=== PATIENT | male | born 1995 | race Caucasian/White ===

== ENCOUNTER 2024-07-02 09:03 | Emergency (ER) | payer BC, SELFPAY ==
--- OUTSIDE RECORDS SUMMARY | 2024-07-02 09:06 | XMS REPORT | Continuity of Care Document ---
Author Name Unknown Address [address] [place] [address] [address] [facility] Address [address] [facility] 1 [address] [place] [address] Care Team Providers Care Air Analysis Technician Name Role Phone LOIS WALKER Attending Clinician Unavailable JOLENE Attending Clinician Unavailable Yael Attending Clinician Unavailable SLOAN Attending Clinician Unavailable HANG SAGE Attending Clinician Unavailable PATI LITTLE Attending Clinician Unavailable WILLIE DIXON Attending Clinician Unavailable LOURDES FIGUEROA Attending Clinician Unavailable CHACHA SÁNCHEZ Attending Clinician Unavailable MASHA CASTILLO Attending Clinician Unalandry bob AMBREEN_JOHNATHANA Admitting Clinician Unavailable Shield Admitting Clinician Unavailable AURORA_Marin Admitting Clinician Unavailable Payers Payer Name Policy Type Policy Number Effective Date Expirati on Date Source [place] [id number] [facility] [id number] Encounters Start Date/Time End Date/Time Encounter Type Admission Type Attending Clinicians Care Facility Care Department Encounter ID Source 2023-01-21 15:00:00 2023-01-21 16:40:00 Emergency ER LOIS WALKER [facility] [id number] [facility] 2021-11-15 05:52:00 2021-11-15 05:52:00 Outpatient AMBREEN_FAR HANA [facility] [id number] [facility] 2021-06-12 10:24:00 2021-06-12 10:24:00 Outpatient [facility] [id number] [facility] 2021-06-12 10:24:00 2021-06-12 10:24:00 Outpatient [facility] [id number] [facility] 2021-06-11 10:06:00 2021-06-11 10:06:00 Outpatient Shield [facility]G [facility] [id number] [facility] 2021-06-07 10:22:00 2021-06-07 10:22:00 Outpatient CANNON_J MMG [facility] [id number] [facility] 2020-09-16 07:06:00 2020-09-16 08:58:00 Emergency ER HANG SAGE [facility] [id number] [facility] 2019-07-10 00:41:00 2019-07-10 02:54:00 Emergency ER SIDNEY PATI [facility] [id number] [facility] 2018-10-06 18:08:00 2018-10-06 21:40:00 Emergency ER WILLIE DIXON [facility] [id number] [facility] 2018-04-08 10:50:00 2018-04-08 11:51:00 Emergency ER LOURDES FIGUEROA [facility] [id number] [facility] 2014-01-22 14:34:00 2014-01-22 16:01:00 Emergency ER GONZALO CHACHA [facility] [id number] [facility] 2013-05-02 13:14:00 2013-05-02 15:15:00 Emergency ER MASHA CASTILLO [facility] [id number] [facility]
[2024-07-02] MEDS ORDERED: LIDOCAINE 2% W/EPI 1:200,000 MPF 20 ML VIAL IM ONE (09:30)
[2024-07-02] MEDS ORDERED: ONDANSETRON 4 MG (ODT) TAB ONE (09:30)
--- NOTE | 2024-07-02 10:07 | RAD REPORT ---
EXAM: CT brain without contrast HISTORY: Headache status post head trauma COMPARISON: None TECHNIQUE: Multiple contiguous axial images were obtained and a CT of the brain without contrast.. Sagittal and coronal reconstruction performed. Automated exposure control, adjustment of the mA and/or kV according to patient size, and/or iterative reconstruction. Unless otherwise specified, incidental f indings do not require dedicated imaging follow-up FINDINGS: Left scalp hematoma. An intracranial bleed is not seen Ventricles are normal caliber No extra-axial fluid collection noted No significant hypodensity within the brain No fluid within the visualized sinuses or mastoids noted. IMPRESSION: No acute intracranial abnormality noted. If the patient continues to have symptoms to suggest an acute intracranial abnormality then MRI of th e brain would be recommended.
--- NOTE | 2024-07-02 11:43 | ER ---
Nurse's Notes [facility] Name: Julius Manzanares Jr Age: 28 yrs Sex: Male : 1995 Arrival Date: 07/02/2024 Time: 09:03 Bed 8 Private MD: Diagnosis: Six centimeter scalp laceration, stapled wound closure by physician Presentation: 07/02 09:14 Chief complaint: Patient states: 2x8 board fell off scaffold and hit in head. jl7 Coronavirus screen: At this time, the client does not indicate any symptoms associated with coronavirus-19. Ebola Screen: No symptoms or risks identified at this time. Complicating Factors: There are no complicating factors for this patient. Initial Sepsis Screen: Does the patient meet any 2 criteria? No. Patient's initial sepsis screen is negative. Does the patient have a suspected source of infection? No. Patient's initial sepsis screen is negative. Risk Assessment: Do you want to hurt yourself or someone else? Patient reports no desire to harm self or others. Onset of symptoms was July 02, 2024. 09:14 Method Of Arrival: Ambulatory [facility] 09:14 Acuity: NILAY 4 jl7 Triage Assessment: 09:15 General: Appears in no apparent distress. uncomfortable, Behavior is calm, cooperative, jl7 appropriate for age. Pain: Complains of pain in head Pain currently is 8 out of 10 on a pain scale. Injury Description: Laceration sustained to scalp. Historical: - Allergies: 09:15 No Known Allergies; jl7 - Home Meds: 09:15 None [Active]; jl7 - PMHx: 09:15 None; jl7 - PSHx: 09:15 None; jl7 - Immunization history:: Adult Immunizations unknown. - Infectious Disease History:: Denies. - Social history:: Smoking status: Reported history of juuling and/or vaping. Screenin:14 [facility] ED Fall Risk Assessment (Adult) History of falling in the last 3 months, ph including since admission No falls in past 3 months (0 pts) Confusion or Disorientation No (0 pts) Intoxicated or Sedated No (0 pts) Impaired Gait No (0 pts) Mobility Assist Device Used No (0 pt) Altered Elimination No (0 pt) Score/Fall Risk Level 0 - 2 = Low Risk Oriented to surroundings, Maintained a safe environment, Hourly rounding (assess needs \T\ fall precautionary measures) done. Abuse screen: Denies threats or abuse. Denies injuries from another. Nutritional screening: No deficits noted. Tuberculosis screening: No symptoms or risk factors identified. Assessment: 11:18 Reassessment: No changes from previously documented assessment. Patient and/or family ll1 updated on plan of care and expected duration. Pain level reassessed. Vital Signs: 09:14 Weight 72.57 kg; Height 5 ft. 8 in. ; Pain 8/10; jl7 09:17 BP 113 / 89; Pulse 87; Resp 18; Temp 97.8; Pulse Ox 98% on R/A; ph 11:45 BP 118 / 72; Pulse 84; Resp 18; Temp 97.8; Pulse Ox 98% on R/A; ph 09:14 Body Mass Index 24.33 (72.57 kg, 172.72 cm) jl7 09:14 Pain Scale: Adult jl7 ED Course: 09:04 Patient arrived in ED. mr 09:05 Sanchez Hermosillo MD is Attending Physician. sp3 09:12 Arm band placed on Patient placed in an exam room, on a stretcher. ll1 09:13 Génesis Nova, RN is Primary Nurse. ph 09:15 Triage completed. jl7 09:15 Patient has correct armband on for positive identification. Bed in low position. Call ph light in reach. Side rails up X 1. Pulse ox on. NIBP on. Door closed. Noise minimized. Warm blanket given. 09:49 CT Head Brain wo Cont In Process Unspecified. EDMS 11:18 Wound care: to laceration located on scalp was cleaned with soap and water, tolerated ll1 well. 11:30 Assist provider with laceration repair on left frontal area that was between 7.6 to ph 12.5 cm using tatum. Set up tray. Performed by Sanchze Hermosillo MD Patient tolerated well. Patient did not have IV access during this emergency room visit. Administered Medications: 09:52 Drug: Ondansetron Oral Disintegrating Tablet Oral Disintegrating Tablet 4 mg PO once ph Route: PO; 10:30 Follow up: Response: No adverse reaction; Nausea is decreased ph 11:30 Drug: Lidocaine-Epinephrine Infiltration -1%: (1:100,000) 1 application 20 ml ph Infiltration once; to bedside Volume: 20 ml; Route: Infiltration; 12:00 Follow up: Response: No adverse reaction ph 12:20 Drug: HYDROcodone-acetaminophen PO 5 mg-325 mg 2 tabs PO once Route: PO; ph 12:21 Follow up: Response: No adverse reaction; Medication administered at discharge. ph Medication: 09:16 VIS not applicable for this client. ph Outcome: 11:43 Discharge ordered by sp3 12:21 Patient left the ED. ph 12:21 Discharged to home ambulatory, with family, ph 12:21 Condition: good 12:21 Discharge instructions given to patient, family, Instructed on discharge instructions, follow up and referral plans. medication usage, wound care, Demonstrated understanding of instructions, follow-up care, medications, wound care, Prescriptions given X 1, Signatures: Dispatcher [employer] EDMS Bernie Villatoro, Reg Reg mr NovaGénesis RN Kaitlin Mena ph, RN RN jl7 Melinda Red RN RN ll1 Sanchez Hermosillo MD MD sp3 Corrections: (The following items were deleted from the chart) 09:17 09:17 BP 113 / 89; Pulse 87bpm; Resp 18bpm; Pulse Ox 98% RA; ph ph 12:20 12:20 Lidocaine-Epinephrine Infiltration -1%: (1:100,000) 1 application 20 ml ph Infiltration ph
--- NOTE | 2024-07-02 11:44 | EDPHYS ---
Physician Documentation [facility] Name: Julius Manzanares Jr Age: 28 yrs Sex: Male : 1995 Arrival Date: 07/02/2024 Time: 09:03 Bed 8 Private MD: ED Physician Sanchez Hermosillo HPI: 07/02 09:42 This 28 yrs old Male presents to ER via Ambulatory with complaints of Laceration To sp3 Head. 09:42 28-year-old male with no past medical history presents with head injury with patient sp3 being dazed coupled with forehead abrasions and laceration to the scalp. Injury occurred just prior to arrival. Review of systems negative for any other pain or symptoms including neck pain, chest pain, back pain, shortness of breath, full syncope, loss of consciousness, or any other medical prodrome or any other signs or symptoms on ROS at this time.. Historical: - Allergies: 09:15 No Known Allergies; jl7 - Home Meds: 09:15 None [Active]; jl7 - PMHx: 09:15 None; jl7 - PSHx: 09:15 None; jl7 - Immunization history:: Adult Immunizations unknown. - Infectious Disease History:: Denies. - Social history:: Smoking status: Reported history of juuling and/or vaping. ROS: 09:43 Constitutional: Negative for fever, chills, and weight loss, Eyes: Negative for injury, sp3 pain, redness, and discharge, ENT: Negative for injury, pain, and discharge, Neck: Negative for injury, pain, and swelling, Cardiovascular: Negative for chest pain, palpitations, and edema, Respiratory: Negative for shortness of breath, cough, wheezing, and pleuritic chest pain, Abdomen/GI: Negative for abdominal pain, nausea, vomiting, diarrhea, and constipation, Back: Negative for injury and pain, : Negative for injury, bleeding, discharge, and swelling, Psych: Negative for depression, anxiety, suicide ideation, homicidal ideation, and hallucinations, Allergy/Immunology: Negative for hives, rash, and allergies, Endocrine: Negative for neck swelling, polydipsia, polyuria, polyphagia, and marked weight changes, Hematologic/Lymphatic: Negative for swollen nodes, abnormal bleeding, and unusual bruising, :43 All other systems are negative, Exam: 09:43 Constitutional: This is a well developed, well nourished patient who is awake, alert, sp3 and in no acute distress. Eyes: Pupils equal round and reactive to light, extra-ocular motions intact. Lids and lashes normal. Conjunctiva and sclera are non-icteric and not injected. Cornea within normal limits. Periorbital areas with no swelling, redness, or edema. Neck: Trachea midline, no thyromegaly or masses palpated, and no cervical lymphadenopathy. Supple, full range of motion without nuchal rigidity, or vertebral point tenderness. No Meningismus. Chest/axilla: Normal chest wall appearance and motion. Nontender with no deformity. No lesions are appreciated. Cardiovascular: Regular rate and rhythm with a normal S1 and S2. No gallops, murmurs, or rubs. Normal PMI, no JVD. No pulse deficits. Respiratory: Lungs have equal breath sounds bilaterally, clear to auscultation and percussion. No rales, rhonchi or wheezes noted. No increased work of breathing, no retractions or nasal flaring. Abdomen/GI: Soft, non-tender, with normal bowel sounds. No distension or tympany. No guarding or rebound. No evidence of tenderness throughout. Back: No spinal tenderness. No costovertebral tenderness. Full range of motion. MS/ Extremity: Pulses equal, no cyanosis. Neurovascular intact. Full, normal range of motion. Neuro: Awake and alert, GCS 15, oriented to person, place, time, and situation. Cranial nerves II-XII grossly intact. Motor strength 5/5 in all extremities. Sensory grossly intact. Cerebellar exam normal. Normal gait. Psych: Awake, alert, with orientation to person, place and time. Behavior, mood, and affect are within normal limits. 09:43 Head/face: Multiple abrasions to the forehead. 2 cm laceration to the scalp.. Vital Signs: 09:14 Weight 72.57 kg; Height 5 ft. 8 in. ; Pain 8/10; jl7 09:17 BP 113 / 89; Pulse 87; Resp 18; Temp 97.8; Pulse Ox 98% on R/A; ph 11:45 BP 118 / 72; Pulse 84; Resp 18; Temp 97.8; Pulse Ox 98% on R/A; ph 09:14 Body Mass Index 24.33 (72.57 kg, 172.72 cm) jl7 09:14 Pain Scale: Adult jl7 Laceration: 11:41 Wound Repair of 6cm ( 2.4in ) subcutaneous laceration to scalp. Distal sp3 neuro/vascular/tendon intact. Anesthesia: Local anesthetic administered with 10 mls of 1% lidocaine w/ Epi. Wound prep: Moderate cleansing, Wound irrigation. Skin closed with 8 1-0 Francisco using simple sutures and sterile technique. Dressed with Bacitracin. Patient tolerated well. MDM: 09:14 Medical Screening Exam initiated sp3 09:43 Data reviewed: vital signs, nurses notes, radiologic studies. ED course: 28-year-old sp3 male with head injury. Differential diagnosis includes laceration in addition to concussion versus intracranial hemorrhage versus traumatic headache. Workup will include CT scan of the head, oral ondansetron and staple repair. Follow-up with PCP in 7 to 10 days for staple removal or return here.. 11:42 ED course: CT scan of the head negative. Sick centimeter wound closed with 8 francisco sp3 without difficulty after cleansing, Betadine prep and local anesthesia 10 mL lidocaine 1% with epinephrine. Patient tolerated procedure well we will discharge him home at this time. 2 Deshler p.o. prior to discharge.. 07/02 09:30 Order name: CT Head Brain wo Cont; Complete Time: 10:33 sp3 Administered Medications: 09:52 Drug: Ondansetron Oral Disintegrating Tablet Oral Disintegrating Tablet 4 mg PO once ph Route: PO; 10:30 Follow up: Response: No adverse reaction; Nausea is decreased ph 11:30 Drug: Lidocaine-Epinephrine Infiltration -1%: (1:100,000) 1 application 20 ml ph Infiltration once; to bedside Volume: 20 ml; Route: Infiltration; 12:00 Follow up: Response: No adverse reaction ph 12:20 Drug: HYDROcodone-acetaminophen PO 5 mg-325 mg 2 tabs PO once Route: PO; ph 12:21 Follow up: Response: No adverse reaction; Medication administered at discharge. ph Disposition Summary: 07/02/24 11:43 Discharge Ordered Notes: Location: Home sp3 Condition: Stable sp3 Diagnosis - Six centimeter scalp laceration, stapled wound closure by physician sp3 Followup: sp3 - With: Private Physician - When: Upon discharge from the Emergency Department - Reason: Continuance of care Discharge Instructions: - Discharge Summary Sheet ll1 - Sutures, [place], or Adhesive Wound Closure sp3 Forms: - Work release form ll1 - Medication Reconciliation Form sp3 - Antibiotic Education sp3 - Prescription Opioid Use sp3 - Patient Portal Instructions sp3 - Leadership Thank You Letter sp3 Prescriptions: - Tramadol 50 mg Oral Tablet - take 1 tablet ORAL route every 8 hours as needed; 12 tablet; Refills: 0, sp3 Product Selection Permitted Signatures: Dispatcher [employer] Génesis Vazquez, RN RN Kaitlin Benitez RN RN jl7 Sanchez Hermosillo MD MD sp3
[2024-07-02] MEDS ORDERED: HYDROCODONE/APAP 5/325 MG TAB ONE (12:08)
[2024-07-02 12:26] VITALS: BP 113/89; TEMP 97.8; O2SAT 98
== END 2024-07-02 12:21 | disposition home or self-care (01) ==
LOC: ER 09:03
DX: S01.01XA Laceration without foreign body of scalp, initial encounter (principal)
CPT/HCPCS: 12032; 70450; 99284; Q0162

== ENCOUNTER 2024-07-12 22:51 | Emergency (ER) | payer SELFPAY ==
--- OUTSIDE RECORDS SUMMARY | 2024-07-12 22:55 | XMS REPORT | Continuity of Care Document ---
Author Name Unknown Address [address] [place] [address] [place] [address] 1 495 [place] [address] Care Team Providers Care Mower Operator Name Role Phone LOIS WALKER Attending Clinician Unavailable JOLENE Attending Clinician Unavailable Yael Attending Clinician Unavailable SLOAN Attending Clinician Unavailable HANG SAGE Attending Clinician Unavailable PATI LITTLE Attending Clinician Unavailable WILLIE DIXON Attending Clinician Unavailable LOURDES FIGUEROA Attending Clinician Unavailable CHACHA SÁNCHEZ Attending Clinician Unavailable MASHA CASTILLO Attending Clinician Yesenia bob AMBREEN_JOHNATHANA Admitting Clinician Unavailable Shield Admitting Clinician Unavailable AURORA_Marin Admitting Clinician Unavailable Payers Payer Name Policy Type Policy Number Effective Date Expirati on Date Source [place] [id number] [facility] [id number] Encounters Start Date/Time End Date/Time Encounter Type Admission Type Attending Clinicians Care Facility Care Department Encounter ID Source 2023-01-21 15:00:00 2023-01-21 16:40:[address] W[address] [facility] [id number] [facility] 2021-11-15 05:52:00 2021-11-15 05:52:00 Outpatient AMBREEN_FAR HANA [facility] [id number] [facility] 2021-06-12 10:24:00 2021-06-12 10:24:00 Outpatient Shield [facility]G [facility] [id number] [facility] 2021-06-12 10:24:00 2021-06-12 10:24:00 Outpatient Shield [facility] [id number] [facility] 2021-06-11 10:06:00 2021-06-11 10:06:00 Outpatient Shield MMG [facility] [id number] [facility] 2021-06-07 10:22:00 2021-06-07 10:22:00 Outpatient CANNON_J MMG [facility] [id number] [facility] 2020-09-16 07:06:00 2020-09-16 08:58:[address] [facility] [id number] [facility] 2019-07-10 00:41:00 2019-07-10 02:54:[address] PATI [facility] [id number] [facility] 2018-10-06 18:08:00 2018-10-06 21:40:[address] [facility] [id number] [facility] 2018-04-08 10:50:00 2018-04-08 11:51:00 Emergency ER LOURDES FIGUEROA [facility] [id number] [facility] 2014-01-22 14:34:00 2014-01-22 16:01:00 Emergency ER GONZALO CHACHA [facility] [id number] [facility] 2013-05-02 13:14:00 2013-05-02 15:15:00 Emergency ER MASHA CASTILLO [facility] [id number] [facility]
--- NOTE | 2024-07-12 23:08 | EDPHYS ---
Physician Documentation [facility] Name: Julius Manzanares Jr Age: 28 yrs Sex: Male : 1995 Arrival Date: 07/12/2024 Time: 22:51 Bed DX3 Private MD: ED Physician Alok Matthew HPI: 07/12 23:05 This 28 yrs old Male presents to ER via Ambulatory with complaints of Suture Removal. rt 23:05 Patient presents to the ED requesting staple removal, the injury occurred almost 2 rt weeks ago, states that is healing appropriately. Denies other acute complaints, symptoms are mild in severity, no other aggravating elevating factors.. Historical: - Allergies: 23:04 No Known Allergies; me1 - Home Meds: 23:04 None [Active]; me1 - PMHx: 23:04 None; me1 - PSHx: 23:04 None; me1 - Immunization history:: Adult Immunizations up to date. - Infectious Disease History:: Denies. - Social history:: Smoking status: Reported history of juuling and/or vaping. - Family history:: not pertinent. ROS: 23:05 Constitutional: Negative for fever, chills, and weight loss, Neuro: Negative for rt headache, weakness, numbness, tingling, and seizure, Psych: Negative for depression, anxiety, suicide ideation, homicidal ideation, and hallucinations, 23:05 Skin: Positive for Repaired laceration, Exam: 23:05 Constitutional: This is a well developed, well nourished patient who is awake, alert, rt and in no acute distress. Skin: Warm, dry with normal turgor. Normal color with no rashes, no lesions, and no evidence of cellulitis. MS/ Extremity: Pulses equal, no cyanosis. Neurovascular intact. Full, normal range of motion. Neuro: Awake and alert, GCS 15, oriented to person, place, time, and situation. Cranial nerves II-XII grossly intact. Motor strength 5/5 in all extremities. Sensory grossly intact. Cerebellar exam normal. Normal gait. 23:05 Head/face: 7 tatum noted in scalp laceration that appears to be very well-healing, no surrounding erythema, signs of infection. Vital Signs: 23:02 BP 123 / 87; Pulse 68; Resp 16; Temp 98.6; Pulse Ox 98% ; Weight 72.57 kg; Height 5 ft. me1 8 in. ; Pain 0/10; 23:02 Body Mass Index 24.33 (72.57 kg, 172.72 cm) me1 23:02 Pain Scale: Adult me1 MDM: 23:05 Medical Screening Exam initiated rt 23:10 Data reviewed: vital signs, nurses notes. ED course: Wound appears to be well-healing, rt tatum removed by RN, no further evaluations are necessary,. Administered Medications: No medications were administered Disposition Summary: 07/12/24 23:08 Discharge Ordered Notes: Location: Home rt Problem: an ongoing problem rt Symptoms: are resolved rt Condition: Stable rt Diagnosis - Encounter for removal of sutures rt Followup: rt - With: Private Physician - When: As needed - Reason: Discharge Instructions: - Discharge Summary Sheet rt - Suture Removal, Care After rt Forms: - Medication Reconciliation Form rt - Antibiotic Education rt - Prescription Opioid Use rt - Patient Portal Instructions rt - Leadership Thank You Letter rt Signatures: Alok Matthew MD MD rt Glenys Rodriguez, RN RN me1
--- NOTE | 2024-07-12 23:08 | ER ---
Nurse's Notes [facility] Name: Julius Manzanares Jr Age: 28 yrs Sex: Male : 1995 Arrival Date: 07/12/2024 Time: 22:51 Bed DX3 Private MD: Diagnosis: Encounter for removal of sutures Presentation: 07/12 23:02 Chief complaint: Patient states: sutures to left scalp, placed 10 days ago. Coronavirus me1 screen: Vaccine status: Patient reports being unvaccinated. Ebola Screen: No symptoms or risks identified at this time. Initial Sepsis Screen: Does the patient meet any 2 criteria? No. Patient's initial sepsis screen is negative. Does the patient have a suspected source of infection? No. Patient's initial sepsis screen is negative. Risk Assessment: Do you want to hurt yourself or someone else? Patient reports no desire to harm self or others. Onset of symptoms was July 02, 2024. 23:02 Method Of Arrival: Amb[place] [facility] [place] 23:02 Acuity: NILAY 5 me1 Triage Assessment: 23:06 General: Appears in no apparent distress. Behavior is calm, cooperative, appropriate me1 for age. Pain: Denies pain. EENT: No signs and/or symptoms were reported regarding the EENT system. Neuro: Level of Consciousness is awake, alert, obeys commands, Oriented to person, place, time, situation, Appropriate for age. Cardiovascular: Patient's skin is warm and dry. Respiratory: Airway is patent Respiratory effort is even, unlabored, Respiratory pattern is regular, symmetrical. GI: No signs and/or symptoms were reported involving the gastrointestinal system. : No signs and/or symptoms were reported regarding the genitourinary system. Derm: Wound noted left frontal area Wound is healed laceration with sutures. Musculoskeletal: No signs and/or symptoms reported regarding the musculoskeletal system. Historical: - Allergies: 23:04 No Known Allergies; me1 - Home Meds: 23:04 None [Active]; me1 - PMHx: 23:04 None; me1 - PSHx: 23:04 None; me1 - Immunization history:: Adult Immunizations up to date. - Infectious Disease History:: Denies. - Social history:: Smoking status: Reported history of juuling and/or vaping. - Family history:: not pertinent. Screenin:07 [facility] ED Fall Risk Assessment (Adult) History of falling in the last 3 months, me1 including since admission No falls in past 3 months (0 pts) Confusion or Disorientation No (0 pts) Intoxicated or Sedated No (0 pts) Impaired Gait No (0 pts) Mobility Assist Device Used No (0 pt) Altered Elimination No (0 pt) Score/Fall Risk Level 0 - 2 = Low Risk Maintained a safe environment, Provided non-skid footwear, Hourly rounding (assess needs \T\ fall precautionary measures) done. Abuse screen: Denies threats or abuse. Nutritional screening: No deficits noted. Tuberculosis screening: No symptoms or risk factors identified. Assessment: 23:07 General: See triage assessment. me1 Vital Signs: 23:02 BP 123 / 87; Pulse 68; Resp 16; Temp 98.6; Pulse Ox 98% ; Weight 72.57 kg; Height 5 ft. me1 8 in. ; Pain 0/10; 23:02 Body Mass Index 24.33 (72.57 kg, 172.72 cm) me1 23:02 Pain Scale: Adult me1 ED Course: 22:55 Patient arrived in ED. gm2 22:56 Alok Matthew MD is Attending Physician. rt 23:04 Triage completed. me1 23:04 Arm band placed on Patient placed in an internal wait recliner. me1 23:06 Glenys Rodriguez, RN is Primary Nurse. me1 23:07 Patient has correct armband on for positive identification. Provided Education on: POC. me1 Verbalized understanding.. 23:07 No provider procedures requiring assistance completed. Patient did not have IV access me1 during this emergency room visit. Administered Medications: No medications were administered Medication: 23:07 VIS not applicable for this client. me1 Outcome: 23:08 Discharge ordered by . rt 23:23 Discharged to home ambulatory, with family, me1 23:23 Condition: stable 23:23 Discharge instructions given to patient, family, Instructed on discharge instructions, follow up and referral plans. Demonstrated understanding of instructions, follow-up care, 23:24 Patient left the ED. me1 Signatures: Alok Matthew MD MD rt Glenys Rodriguez, RN RN me1 So Enrique gm2
[2024-07-13 00:14] VITALS: BP 123/87; TEMP 98.6; O2SAT 98
== END 2024-07-12 23:24 | disposition home or self-care (01) ==
LOC: ER 22:51
DX: Z48.02 Encounter for removal of sutures (principal)
CPT/HCPCS: 99282